=== PATIENT | female | born 1935 | race Asian ===

== ENCOUNTER 2020-03-26 15:16 | Emergency (ER) | payer MEDICARE, OTHER ==
[~2020-03-26] VITALS: Ht 165.1 cm; Wt 68.0 kg
--- NOTE | 2020-03-26 15:25 | NUR ---
ED Nurse Note: Patient brought into ED by ambulance [facility] [id number] s/p fall on the street tripped and fell 20 minutes prior to arrival. Per patient hhe hs left hip pain, left flank pain, and she hit her head. Patient presented calm, AAO x4, VSS at this time.
[2020-03-26] MEDS ORDERED: Tylenol #3 tab (300mg/30mg) PO ONE (15:30)
--- NOTE | 2020-03-26 15:30 | NUR ---
ED Nurse Note: ED MD @ bedside
[2020-03-26 15:31] VITALS: BP 131/74
[2020-03-26] MEDS ORDERED: Tylenol #3 tab (300mg/30mg) ONE (15:39)
--- NOTE | 2020-03-26 15:42 | NUR ---
ED Nurse Note: patient was taken to CT
--- NOTE | 2020-03-26 16:59 | Diagnostic Imaging Report ---
Indication: Headache, trauma, status post fall Technique: Spiral acquisitions obtained through the cervical spine. No IV contrast utilized. Multiplanar reconstructions were generated. Total dose length product 122 mGycm. CTDIvol(s) 5 mGy. Dose reduction achieved using automated exposure control. Comparison: none Findings: There is anterior fusion hardware fusing the C4, C5, C6, and C7 vertebral bodies. The intervening discs appear completely ankylosed. The hardware appears intact and well aligned. No acute fractures. No dislocations. No prevertebral soft tissue swelling. The bony alignment is normal. The remaining disc spaces are preserved. At C2-3, short pedicles and mild broad-based posterior disc protrusion results in mild narrowing spinal canal. There is moderate bilateral neural foraminal stenosis, predominantly due to facet arthrosis. At C3-4, posterior osteophytes and short pedicles result in moderate narrowing of the spinal canal. There is bilateral moderate neural foraminal stenosis. There is bilateral facet arthrosis. At C4-5, short pedicles and posterior osteophytes result in moderate narrowing of the spinal canal. There is moderate to severe right and moderate left neural foraminal stenosis. There is bilateral facet arthrosis. At C5-6, short pedicles and posterior osteophytes result in moderate narrowing of the spinal canal. There is mild left and moderate right neural foraminal stenosis. At C6-7, short pedicles and posterior osteophytes result in mild to moderate narrowing of the spinal canal. There is moderate right and mild left neural foraminal stenosis. At C7-T1, no significant disc bulge or protrusion or spinal stenosis. There is mild bilateral neural foraminal stenosis. There is a 16 mm nodule within the right thyroid lobe lower pole. Scarring is seen within the bilateral lung apices. There is a metallic dental prosthesis. There is minimal left maxillary sinus disease. 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 Consider further evaluation with sonography if clinically indicated Bilateral apical pulmonary parenchymal scarring Incidental finding minimal left mastoid sinus disease, small bilateral torus mandibularis The CT scanner at [facility] is accredited by the [employer] and the scans are performed using protocols designed to limit radiation exposure to as low as reasonably achievable to attain images of sufficient resolution adequate for diagnostic evaluation.
--- NOTE | 2020-03-26 17:02 | Diagnostic Imaging Report ---
Indications: Trauma, pain, status post fall Technique: Spiral acquisitions obtained through the brain. Angled axial and coronal 5 x 5 mm slices were reconstructed. Total dose length product 1050 mGycm. CTDI vol(s) 53 mGy. Dose reduction achieved using automated exposure control Comparison: None. Findings: There is age-related enlargement of the ventricles and extra axial CSF spaces. No acute intracranial hemorrhage or edema. No mass effect nor midline shift. There is evidence of posterior parietal midline scalp contusion. The calvarium is intact. 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 There is nonaeration of the mastoids on the right. There is minimal ethmoid and maxillary sinus mucosal disease. There is suggestion of prior bilateral cataract surgery. Impression: Age-related volume loss Negative for acute intracranial bleed or mass effect Incidental findings as noted The CT scanner at [facility] is accredited by the [employer] and the scans are performed using protocols designed to limit radiation exposure to as low as reasonably achievable to attain images of sufficient resolution adequate for diagnostic evaluation.
--- NOTE | 2020-03-26 17:08 | Diagnostic Imaging Report ---
Indication: ,, Pain, status post fall Technique: Noncontrast spiral acquisitions obtained through the pelvis. Multiplanar reconstructions generated. Total dose length product 164 mGycm. CTDIvol(s) 4 mGy. Dose reduction achieved using automated exposure control Comparison: none Findings: Surgical hardware is seen reducing old healed right hip intertrochanteric fracture. No acute fractures. No dislocations. The joint spaces are preserved. There are degenerative changes of the lumbosacral junction. No significant soft tissue contusion is noted. The included pelvic soft tissues are unremarkable. The uterus is absent. 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 Impression: No acute bony trauma Postsurgical changes of the right hip. Degenerative changes of the lumbosacral junction Surgically absent uterus The CT scanner at [facility] is accredited by the [employer] and the scans are performed using protocols designed to limit radiation exposure to as low as reasonably achievable to attain images of sufficient resolution adequate for diagnostic evaluation.
--- NOTE | 2020-03-26 17:11 | Diagnostic Imaging Report ---
Indications: Pain, trauma, status post fall Technique: Two views of the left femur Comparison: None Findings: No acute fractures. No radiopaque foreign body demonstrated. The joint spaces are preserved Impression: No acute bony trauma
[2020-03-26] MEDS ORDERED: TYLENOL EXTRA500 MG ORAL (17:23)
[2020-03-26 17:27] VITALS: BP 131/74
--- NOTE | 2020-03-26 17:27 | NUR ---
ED Nurse Note: Pt cleared by health care Provider for discharge. DC instructions/prescription was given and explained to pt and verbalized understanding of teachings. All medical deviecs such as ID band removed. Pt is AAO x4, ambulatory and left with all personal belongings.
--- NOTE | 2020-03-26 18:24 | Emergency Room Report ---
History of Present Illness General Chief Complaint: Multiple Trauma/Fall Source: Patient, EMS Present Illness HPI 84-year-old female presents for evaluation. Brought in by EMS. Had a mechanical trip and fall on street today. Normally uses a walker. States she hit her head. Denies LOC. Complaining of left hip pain headache and neck pain. Dull, 5 out of 10, nonradiating. Denies nausea or vomiting. No other aggravating relieving factors. Denies any other associated symptoms Allergies: Coded Allergies: No Known Allergies (Unverified , 03/26/20) COVID-19 Screening Contact w/high risk pt: No Experienced COVID-19 symptoms?: No COVID-19 Testing performed [employer]: No Patient History Past Medical History: none Past Surgical History: none Pertinent Family History: none Social History: Denies: smoking, alcohol use, drug use Now: No Immunizations: UTD Reviewed Nursing Documentation: PMH: Agreed; PSxH: Agreed Nursing Documentation-PMH Past Medical History: No Stated History Review of Systems All Other Systems: negative except mentioned in HPI Physical Exam Vital Signs Date Time Temp Pulse Resp B/P (MAP) Pulse Ox O2 Delivery O2 Flow Rate FiO2 03/26/20 15:09 99.3 78 17 134/72 (92) 96 Room Air Sp02 EP Interpretation: reviewed, normal General Appearance: no apparent distress, alert, GCS 15, non-toxic Head: normocephalic, atraumatic Eyes: bilateral eye normal inspection, bilateral eye PERRL ENT: hearing grossly normal, normal pharynx, no angioedema, normal voice Neck: full range of motion, supple/symm/no masses, tender midline Respiratory: chest non-tender, lungs clear, normal breath sounds, speaking full sentences Cardiovascular #1: regular rate, rhythm, no edema Cardiovascular #2: 2+ carotid (R), 2+ carotid (L), 2+ radial (R), 2+ radial (L) , 2+ dorsalis pedis (R), 2+ dorsalis pedis (L) Gastrointestinal: normal bowel sounds, non tender, soft, non-distended, no guarding, no rebound Rectal: deferred Genitourinary: normal inspection, no CVA tenderness Musculoskeletal: back normal, normal range of motion, gait/station normal, tender - L hip Neurologic: alert, motor strength/tone normal, oriented x3, sensory intact, responsive, speech normal Psychiatric: judgement/insight normal, memory normal, mood/affect normal, no suicidal/homicidal ideation Reflexes: 3+ bicep (R), 3+ bicep (L), 3+ tricep (R), 3+ tricep (L), 3+ knee (R) , 3+ knee (L) Skin: no rash Lymphatic: no adenopathy Medical Decision Making Diagnostic Impression: Primary Impression: Multiple injuries due to trauma ER Course Hospital Course 84 yo F presents to ED c/o headache, neck pain and L hip pain s/p fall Differential diagnoses include: Fracture, dislocation, sprain, contusion Clinical course Patient placed on stretcher. After initial history and physical, I ordered pain medications and imaging studies CTs of head C-spine and pelvis show no acute fracture. X-ray femur shows no acute fracture On reassessment pain improved. Discussed findings with patient. Patient given walker in ED and is able to ambulate. Safe for discharge with close outpatient follow-up. at bedside. Diagnosis - multiple injuries due to trauma Stable and discharged to home with prescription for Tylenol. apply ice, keep elevated. weight bear as tolerated. Followup with PMD. Return to ED if symptoms recur or worsen Other X-Ray Diagnostic Results Other X-Ray Diagnostic Results : X-Ray ordered: Femur # of Views/Limited Vs Complete: 3 View Indication: Pain EP Interpretation: Yes Interpretation: no dislocation, no soft tissue swelling, no fractures Impression: No acute disease Electronically Signed by: Electronically signed by Александр Gordon MD CT/MRI/US Diagnostic Results CT/MRI/US Diagnostic Results #1: Imaging Test Ordered: CT Head Impression Procedure: CT Head no Contrast Indications: Trauma, pain, status post fall Technique: Spiral acquisitions obtained through the brain. Angled axial and coronal 5 x 5 mm slices were reconstructed. Total dose length product 1050 mGycm. CTDI vol(s) 53 mGy. Dose reduction achieved using automated exposure control Comparison: None. Findings: There is age-related enlargement of the ventricles and extra axial CSF spaces. No acute intracranial hemorrhage or edema. No mass effect nor midline shift. There is evidence of posterior parietal midline scalp contusion. The calvarium is intact. 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 There is nonaeration of the mastoids on the right. There is minimal ethmoid and maxillary sinus mucosal disease. There is suggestion of prior bilateral cataract surgery. Impression: Age-related volume loss Negative for acute intracranial bleed or mass effect Incidental findings as noted The CT scanner at [facility] is accredited by the [employer] and the scans are performed using protocols designed to limit radiation exposure to as low as reasonably achievable to attain images of sufficient resolution adequate for diagnostic evaluation. CT/MRI/US Diagnostic Results #2: Imaging Test Ordered: CT C spine Impression Comparison: none Findings: There is anterior fusion hardware fusing the C4, C5, C6, and C7 vertebral bodies. The intervening discs appear completely ankylosed. The hardware appears intact and well aligned. No acute fractures. No dislocations. No prevertebral soft tissue swelling. The bony alignment is normal. The remaining disc spaces are preserved. At C2-3, short pedicles and mild broad-based posterior disc protrusion results in mild narrowing spinal canal. There is moderate bilateral neural foraminal stenosis, predominantly due to facet arthrosis. At C3-4, posterior osteophytes and short pedicles result in moderate narrowing of the spinal canal. There is bilateral moderate neural foraminal stenosis. There is bilateral facet arthrosis. At C4-5, short pedicles and posterior osteophytes result in moderate narrowing of the spinal canal. There is moderate to severe right and moderate left neural foraminal stenosis. There is bilateral facet arthrosis. At C5-6, short pedicles and posterior osteophytes result in moderate narrowing of the spinal canal. There is mild left and moderate right neural foraminal stenosis. At C6-7, short pedicles and posterior osteophytes result in mild to moderate narrowing of the spinal canal. There is moderate right and mild left neural foraminal stenosis. At C7-T1, no significant disc bulge or protrusion or spinal stenosis. There is mild bilateral neural foraminal stenosis. There is a 16 mm nodule within the right thyroid lobe lower pole. Scarring is seen within the bilateral lung apices. There is a metallic dental prosthesis. There is minimal left maxillary sinus disease. 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 Consider further evaluation with sonography if clinically indicated Bilateral apical pulmonary parenchymal scarring Incidental finding minimal left mastoid sinus disease, small bilateral torus mandibularis The CT scanner at [facility] is accredited by the [employer] and the scans are performed using protocols designed to limit radiation exposure to as low as reasonably achievable to attain images of sufficient resolution adequate for diagnostic evaluation. CT/MRI/US Diagnostic Results #3: Imaging Test Ordered: CT Pelvis Impression Procedure: CT Pelvis no Contrast Indication: ,, Pain, status post fall Technique: Noncontrast spiral acquisitions obtained through the pelvis. Multiplanar reconstructions generated. Total dose length product 164 mGycm. CTDIvol(s) 4 mGy. Dose reduction achieved using automated exposure control Comparison: none Findings: Surgical hardware is seen reducing old healed right hip intertrochanteric fracture. No acute fractures. No dislocations. The joint spaces are preserved. There are degenerative changes of the lumbosacral junction. No significant soft tissue contusion is noted. The included pelvic soft tissues are unremarkable. The uterus is absent. 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 Impression: No acute bony trauma Postsurgical changes of the right hip. Degenerative changes of the lumbosacral junction Surgically absent uterus The CT scanner at [facility] is accredited by the [employer] and the scans are performed using protocols designed to limit radiation exposure to as low as reasonably achievable to attain images of sufficient resolution adequate for diagnostic evaluation. Last Vital Signs Date Time Temp Pulse Resp B/P (MAP) Pulse Ox O2 Delivery O2 Flow Rate FiO2 03/26/20 17:27 99.1 17 131/74 97 Room Air 03/26/20 15:31 71 Status: improved Disposition: HOME, SELF-CARE Condition: Stable Scripts Acetaminophen* (TYLENOL EXTRA STRENGTH*) 500 Mg Tablet 500 MG ORAL Q8H PRN for Prn Headache/Temp > 101, #30 TAB 0 Refills Prov: Александр Gordon MD 03/26/20 Referrals: Naomi Carreon [facility] Patient Instructions: Head Injury, Adult, [id number], Contusion-SportsMed Александр Gordon MD Mar 26, 2020 18:24
== END 2020-03-26 17:27 | disposition home or self-care (01) ==
LOC: EDBD 15:16 → EMR 16:52
DX: M25.552 Pain in left hip (principal); M54.2 Cervicalgia; R51 Headache; E04.1 Nontoxic single thyroid nodule; J32.9 Chronic sinusitis, unspecified; M48.03 Spinal stenosis, cervicothoracic region
CPT/HCPCS: 70450; 72125; 72192; 99284